=== PATIENT | female | born 1970 | race African-American/Black ===

== ENCOUNTER 2018-06-18 15:16 | Inpatient (IN) ==
[2018-06-18 17:33] LABS: Basophils % 0.3 % (0.0-0.8); Eosinophils # 0.3 10*3/uL (0.0-0.87); Eosinophils % 4.2 % (0.00-10.9); Hematocrit 35.2 VOL% (35.7-47.0); Hemoglobin 12.1 GM/DL (12.0-16.0); Immature Granulocytes % 0.6 %; Immature Granulocytes Absolute 0.04 #; Lymphocytes # 1.7 10*3/uL (1.4-4.0); Lymphocytes % 25.1 % (21.3-54.2); Mean Corpuscular HGB Conc 34.4 GM/DL (32-36); Mean Corpuscular Hemoglobin 33 PG (27-34); Mean Corpuscular Volume 95.9 FL (87-102); Mean Platelet Volume 9.6 FL (9.6-12.0); Monocytes # 0.6 10*3/uL (0.11-0.8); Monocytes % 8.7 % (1.7-12.7); Neutrophils # 4.2 10*3/uL (1.4-7.4); Neutrophils % 61.1 % (38.7-73.9); Platelet Count 313 T/CUMM (130-400); Red Blood Count 3.67 MC/CUMM (3.8-5.5); Red Cell Distribution Width 13.4 % (9.3-17.3); White Blood Count 6.9 T/CUMM (4-12)
[2018-06-18 18:01] LABS: Alanine Aminotransferase 172 U/L (13-56); Albumin 3.7 G/DL (3.4-5.0); Alkaline Phosphatase 123 U/L (45-117); Aspartate Amino Transferase 74 U/L (0-37); Bilirubin,Total < 0.39 MG/DL (0.2-1.0); Blood Urea Nitrogen 9 MG/DL (7-18); Calcium 8.7 MG/DL (8.5-10.1); Glucose 91 MG/DL (74-106); Sodium 142 MMOL/L (136-145); Total Protein 7.1 G/DL (6.4-8.3)
[2018-06-18 18:02] LABS: Osmolality,Calculated 281.1 MOS/KG (273-304); Potassium 3.3 MMOL/L (3.5-5.1)
[2018-06-18 18:21] LABS: Apearance,Urine CLEAR (Clear); Bacteria,Urine Moderate /HPF (Few); Bilirubin,Urine Negative (Negative); Blood, Urine Negative (Negative); Glucose,Urine (UA) Negative (Negative); Ketones,Urine Negative (Negative); Mucus,Urine Occasional /LPF (Occasional); Nitrite,Urine Negative (Negative); Protein,Urine Negative; Squamous Epithelial Cell,Urine Occasional /HPF (0-10); Urine Color Yellow (Yellow); Urine Specific Gravity 1.006 (1.001-1.035); Urine Urobilinogen < 2.0 EU/DL (0.2-1.0); WBC,Urine 1 /HPF (0-6)
[2018-06-18] MEDS ORDERED: KETOROLAC 30 MG/1 ML VIAL IV STA (19:47)
[2018-06-18] MEDS ORDERED: KETOROLAC 30 MG/1 ML VIAL ONE ×2 (19:50→19:54)
[2018-06-18] MEDS: SODIUM CHLOR 0.9% KCL 20 MEQ 20 MEQ/1,000 ML BAG IV SCH (21:43)
[2018-06-18] MEDS ORDERED: tiZANidine 4 MG TABLET PO PRN (23:39)
[2018-06-18] MEDS ORDERED: CHLORDIAZEPOXIDE 5 MG PO PRN (23:39)
[2018-06-18] MEDS ORDERED: ALBUTEROL/IPRATROPIUM 3 ML NEB RESP TX PRN (23:52)
[2018-06-18 23:58] LABS: Basophils % 0.4 % (0.0-0.8); Eosinophils # 0.3 10*3/uL (0.0-0.87); Eosinophils % 4.5 % (0.00-10.9); Hematocrit 34.1 VOL% (35.7-47.0); Hemoglobin 11.6 GM/DL (12.0-16.0); Immature Granulocytes % 0.3 %; Immature Granulocytes Absolute 0.02 #; Lymphocytes % 29.4 % (21.3-54.2); Mean Corpuscular Hemoglobin 33 PG (27-34); Mean Corpuscular Volume 97.2 FL (87-102); Mean Platelet Volume 10.3 FL (9.6-12.0); Monocytes # 0.4 10*3/uL (0.11-0.8); Monocytes % 6.5 % (1.7-12.7); Neutrophils % 58.9 % (38.7-73.9); Platelet Count 302 T/CUMM (130-400); Red Blood Count 3.51 MC/CUMM (3.8-5.5); Red Cell Distribution Width 13.5 % (9.3-17.3); White Blood Count 6.7 T/CUMM (4-12)
[2018-06-19 00:21] LABS: HIV Antigen/Antibody Result Nonreactive (Nonreactive); Hepatitis A Ab IgM Quant 0.16 Index; Hepatitis A Ab IgM Result Negative (Negative); Hepatitis B Core IgM Quant < 0.05 Index; Hepatitis B Core IgM Result Negative (Negative); Hepatitis B Surface Ag Quant < 0.10 Index; Hepatitis B Surface Ag Result Negative (Negative); Hepatitis C Virus Ab Result Negative (Negative)
[2018-06-19] MEDS ORDERED: PNEUMOCOCCAL VACCINE (13 VALENT) 0.5 ML SYRINGE IM ONE (00:56)
[2018-06-19 06:19] LABS: Albumin 2.9 G/DL (3.4-5.0); Bilirubin,Total 0.6 MG/DL (0.2-1.0); Calcium 8.2 MG/DL (8.5-10.1); Osmolality,Calculated 283.8 MOS/KG (273-304); Potassium 3.6 MMOL/L (3.5-5.1); Total Protein 5.9 G/DL (6.4-8.3)
[2018-06-19] MEDS: VERAPAMIL SR 180 MG TABLET PO SCH (09:13)
[2018-06-19] MEDS: PANTOPRAZOLE 40 MG TABLET PO SCH (09:13)
[2018-06-19] MEDS: ASCORBIC ACID 500 MG TABLET PO SCH (09:13)
[2018-06-19] MEDS: ENOXAPARIN 40 MG/0.4 ML SYRINGE SUBCUT SCH (09:13)
[2018-06-19] MEDS: buPROPion XL 150 MG TABLET PO SCH (09:13)
[2018-06-19] MEDS: PYRIDOXINE 100 MG TABLET PO SCH (09:14)
[2018-06-19] MEDS: ONDANSETRON 4 MG/2 ML VIAL IV PRN ×2 (12:26→20:43)
[2018-06-19] MEDS: SODIUM CHLOR 0.9% KCL 20 MEQ 20 MEQ/1,000 ML BAG IV SCH ×2 (14:53→14:54)
[2018-06-19] MEDS: CYANOCOBALAMIN 1000 MCG/1 ML VIAL IM SCH (18:44)
[2018-06-19] MEDS ORDERED: BUTALBITAL/ACETAMIN/CAFFEINE 50-325-40 MG TABLET PO ONE (20:32)
[2018-06-19] MEDS ORDERED: PROMETHAZINE 25 MG/1 ML VIAL IM ONE (21:15)
[2018-06-20 05:25] LABS: Basophils % 0.6 % (0.0-0.8); Eosinophils # 0.3 10*3/uL (0.0-0.87); Eosinophils % 5.6 % (0.00-10.9); Hematocrit 35.7 VOL% (35.7-47.0); Immature Granulocytes % 0.4 %; Immature Granulocytes Absolute 0.02 #; Lymphocytes # 1.9 10*3/uL (1.4-4.0); Lymphocytes % 38.1 % (21.3-54.2); Mean Corpuscular HGB Conc 33.6 GM/DL (32-36); Mean Corpuscular Hemoglobin 33 PG (27-34); Mean Corpuscular Volume 97.5 FL (87-102); Mean Platelet Volume 9.8 FL (9.6-12.0); Monocytes # 0.4 10*3/uL (0.11-0.8); Monocytes % 8.2 % (1.7-12.7); Neutrophils # 2.3 10*3/uL (1.4-7.4); Neutrophils % 47.1 % (38.7-73.9); Platelet Count 278 T/CUMM (130-400); Red Blood Count 3.66 MC/CUMM (3.8-5.5); Red Cell Distribution Width 13.6 % (9.3-17.3); White Blood Count 4.9 T/CUMM (4-12)
[2018-06-20 05:34] LABS: INR 0.9
[2018-06-20 06:00] LABS: Albumin 3.1 G/DL (3.4-5.0); Bilirubin,Total 0.4 MG/DL (0.2-1.0); Calcium 8.3 MG/DL (8.5-10.1); Osmolality,Calculated 280.1 MOS/KG (273-304); Potassium 3.9 MMOL/L (3.5-5.1); Total Protein 6.3 G/DL (6.4-8.3)
[2018-06-20] MEDS ORDERED: FUROSEMIDE 40 MG/4 ML VIAL IV ONE (07:47)
[2018-06-20] MEDS: PANTOPRAZOLE 40 MG TABLET PO SCH (09:14)
[2018-06-20] MEDS: buPROPion XL 150 MG TABLET PO SCH (09:14)
[2018-06-20] MEDS: ASCORBIC ACID 500 MG TABLET PO SCH (09:14)
[2018-06-20] MEDS: PYRIDOXINE 100 MG TABLET PO SCH (09:14)
[2018-06-20] MEDS: LEVOFLOXACIN INJ 500 MG in PREMIX 1 EACH IV SCH (09:17)
[2018-06-20] MEDS: ENOXAPARIN 40 MG/0.4 ML SYRINGE SUBCUT SCH (09:22)
[2018-06-20] MEDS: CYANOCOBALAMIN 1000 MCG/1 ML VIAL IM SCH (09:22)
[2018-06-20] MEDS: VERAPAMIL SR 180 MG TABLET PO SCH (09:25)
[2018-06-20] MEDS: PROMETHAZINE 25 MG TABLET PO PRN ×2 (14:27→21:13)
[2018-06-20 17:17] LABS: Glucose,CSF 51 MG/DL (40-70)
[2018-06-20] MEDS ORDERED: BUTALBITAL/ACETAMIN/CAFFEINE 50-325-40 MG TABLET PO PRN (17:27)
[2018-06-20] MEDS: BUTALBITAL/ACETAMIN/CAFFEINE 50-325-40 MG TABLET PO PRN (17:32)
[2018-06-20 18:01] LABS: Lymphocytes,CSF 60 %; Neutrophils,CSF 40 %; White Blood Cell,CSF 3 C/CUMM
[2018-06-20 18:02] LABS: Appearance,CSF Clear; Red Blood Cell,CSF 10 C/CUMM
[2018-06-21] MEDS ORDERED: PROMETHAZINE 25 MG/1 ML VIAL IM ONE (00:50)
[2018-06-21] MEDS: BUTALBITAL/ACETAMIN/CAFFEINE 50-325-40 MG TABLET PO PRN (00:56)
[2018-06-21] MEDS: ENOXAPARIN 40 MG/0.4 ML SYRINGE SUBCUT SCH (09:39)
[2018-06-21] MEDS: ASCORBIC ACID 500 MG TABLET PO SCH (09:40)
[2018-06-21] MEDS: VERAPAMIL SR 180 MG TABLET PO SCH (09:40)
[2018-06-21] MEDS: LEVOFLOXACIN INJ 500 MG in PREMIX 1 EACH IV SCH (09:40)
[2018-06-21] MEDS: PANTOPRAZOLE 40 MG TABLET PO SCH (09:40)
[2018-06-21] MEDS: PYRIDOXINE 100 MG TABLET PO SCH (09:40)
[2018-06-21] MEDS: buPROPion XL 150 MG TABLET PO SCH (09:40)
[2018-06-21] MEDS: CYANOCOBALAMIN 1000 MCG/1 ML VIAL IM SCH (09:40)
[2018-06-21] MEDS ORDERED: KETOROLAC 30 MG/1 ML VIAL IV ONE (09:55)
[2018-06-21 11:27] VITALS: BP 145/89
== END 2018-06-21 14:26 | disposition home or self-care (01) | DRG 948 ==
LOC: N.ED 15:16 → N.EDINP 23:07 → N.TELES 06-19 00:10
PROVIDERS: ADMIT Hospitalist; ATTEND Hospitalist